=== PATIENT | female | born 2000 | race Caucasian/White ===

== ENCOUNTER → 2018-04-22 10:38 | Outpatient (CLI) | payer OTHER, SELFPAY ==
[2018-04-22 13:28] LABS: Basophils % 0.8 % (0.1-2.0); Eosinophils # 0.1 K/mm3 (0.0-0.4); Eosinophils % 2.6 % (0.1-12.0); Hematocrit 41.5 % (37.0-47.0); Hemoglobin 13.6 g/dL (12.2-16.2); Lymphocytes # 2.5 K/mm3 (0.7-4.5); Mean Corpuscular HGB Conc 32.9 g/dL (31.8-35.4); Mean Corpuscular Hemoglobin 29.1 pg (27.0-31.2); Mean Corpuscular Volume 88.5 fl (81-99); Mean Platelet Volume 7.3 fl (7.4-10.4); Monocytes # 0.3 K/mm3 (0.1-1.0); Neutrophils # 1.6 K/mm3 (1.8-7.8); Neutrophils % 35.6 % (37.0-80.0); Platelet Count 270 K/mm3 (142-424); Red Blood Count 4.68 M/mm3 (4.20-5.40); Red Cell Distribution Width 14.1 % (11.5-17.5); White Blood Count 4.4 K/mm3 (4.5-13.0)
[2018-04-22 13:31] LABS: Free Thyroxine Index 2.2 ug/dL (5.93-13.13); MANUAL DIFFERENTIAL MANUAL DIFFERENTIAL (MANUAL DIFF); T4 (Thyroxine) 7.6 ug/dl (5.4-10.6); Thyroid Stimulating Hormone 1.16 uIU/ml (0.516-4.13); Triiodothryronine (T3) Uptake 29 % (31-39)
[2018-04-22 15:43] LABS: Eosinophils % 3 % (0-3); Lymphocytes % 55 % (10-50); Monocytes % 7 % (2-9); Neutrophils % 35 % (42-76); Total Cells Counted 100
[2018-04-22 15:51] LABS: Platelet Estimate Normal
[2018-04-24 17:13] LABS: FSH 4.8 mIU/mL (.); LH 5.6 mIU/mL (.); Triiodothyronine (T3) Free 3.5 pg/mL (2.0-4.4)
[2018-04-25 12:33] LABS: Neisseria gonorrhoeae, NAA Negative (Negative)
== END ==
PROVIDERS: Visit Provider Nurse Practitioner Obstetrics & Gynecology
DX: N92.6 Irregular menstruation, unspecified (principal); R63.5 Abnormal weight gain; Z72.51 High risk heterosexual behavior
CPT/HCPCS: 36415; 83001; 83002; 84436; 84443; 84479; 84481; 85007; 85025; 87491; 87591

== ENCOUNTER → 2018-04-27 15:35 | Outpatient (CLI) | payer OTHER, SELFPAY ==
--- NOTE | 2018-04-27 15:36 | US_ITS ---
US transvaginal Ordering Physician: Wes Thomas MD Patient Age: 18 years: Female HISTORY: ITS.REASON: US T/V- Abnormal bleeding, r/o ovarian cysts A menorrhea for 5 months. Pelvic pain. Irregular cycles. TECHNIQUE: COMPARISON :None FINDINGS Uterus normal size. 6.9 cm length of 2.5 cm in AP X 3.75 cm wide. Endometrial stripe overall measures 7.5 mm AP on my measurement. Would note that centrally there is a very thin 1.5 mm hyperechoic endometrium stripe centrally surrounded by a more hypoechoic rim accounting for this total 7.5 mm AP endometrial measurement Mild Bilateral ovarian enlargement with polycystic appearance. Very numerous small follicles throughout both ovaries generous color Doppler flow to both ovaries. Right ovary: 4.1 x 2.45 x 1.8 cm..: Right ovary. Largest follicle 9 mm size with mild debris-filled cyst here... To numerous to count other small follicles less than 6 mm size scattered throughout the right ovary. Most numerous about its margin. Left ovary: 4.1 x 2.1 x 2.5 cm.: Largest follicle measuring 8 mm but too numerous to count smaller follicles throughout scattered throughout but most numerous about the margin of left ovary . No fluid in the cul-de-sac ========IMPRESSION: 1. Uterus normal size.. No uterine mass Moderate Endometrial stripe 6.7 mm 2. Ovaries mildly enlarged bilaterally with polycystic appearance. 3. No fluid in cul-de-sac
== END ==
PROVIDERS: PCP Nurse Practitioner Family; Visit Provider Nurse Practitioner Obstetrics & Gynecology
DX: N83.209 Unspecified ovarian cyst, unspecified side (principal); N93.9 Abnormal uterine and vaginal bleeding, unspecified
CPT/HCPCS: 76830

== ENCOUNTER → 2018-05-11 17:29 | Outpatient (CLI) | payer OTHER, SELFPAY ==
[2018-05-11 17:44] LABS: Basophils % 0.5 % (0.1-2.0); Eosinophils # 0.1 K/mm3 (0.0-0.4); Hematocrit 37.7 % (37.0-47.0); Hemoglobin 12.9 g/dL (12.2-16.2); Lymphocytes # 2.3 K/mm3 (0.7-4.5); Mean Corpuscular HGB Conc 34.2 g/dL (31.8-35.4); Mean Corpuscular Hemoglobin 29.2 pg (27.0-31.2); Mean Corpuscular Volume 85.5 fl (81-99); Mean Platelet Volume 7.1 fl (7.4-10.4); Monocytes # 0.2 K/mm3 (0.1-1.0); Monocytes % 4.5 % (1.7-9.3); Neutrophils # 2.5 K/mm3 (1.8-7.8); Platelet Count 247 K/mm3 (142-424); Red Blood Count 4.42 M/mm3 (4.20-5.40); Red Cell Distribution Width 13.8 % (11.5-17.5); White Blood Count 5.2 K/mm3 (4.5-13.0)
[2018-05-11 18:56] LABS: HCG Qualitative, Serum Negative (Negative)
[2018-05-11 21:35] LABS: Blood Urea Nitrogen 11 mg/dL (7-18); Calcium 9.9 mg/dL (8.5-10.1); Carbon Dioxide 26 mmol/L (21.0-32.0); Chloride 101 mmol/L (98-107); Creatinine,Serum 0.73 mg/dL (0.55-1.02); Estimated Glomerular Filt Rate 102 ml/min (>60); GFR (African American) 123 ML/MIN (>60); Glucose 117 mg/dL (74-106); Sodium 137 mmol/L (136-145)
== END ==
PROVIDERS: Visit Provider Nurse Practitioner Obstetrics & Gynecology
DX: Z01.818 Encounter for other preprocedural examination (principal); R10.2 Pelvic and perineal pain; G89.29 Other chronic pain; R10.31 Right lower quadrant pain
CPT/HCPCS: 36415; 80048; 84703; 85025

== ENCOUNTER → 2018-05-28 12:13 | Outpatient (CLI) | payer OTHER, SELFPAY ==
[2018-05-28 15:01] LABS: Free Thyroxine Index 3.2 ug/dL (5.93-13.13); T4 (Thyroxine) 12.2 ug/dl (5.4-10.6); Thyroid Stimulating Hormone 1.46 uIU/ml (0.516-4.13); Triiodothryronine (T3) Uptake 26 % (31-39)
[2018-05-29 10:54] LABS: Triiodothyronine (T3) Free 3.5 pg/mL (2.0-4.4)
== END ==
PROVIDERS: Visit Provider Nurse Practitioner Obstetrics & Gynecology
DX: R53.83 Other fatigue (principal)
CPT/HCPCS: 84436; 84443; 84479; 84481

== ENCOUNTER → 2018-06-02 11:18 | Outpatient (CLI) | payer OTHER, SELFPAY ==
[2018-06-02 11:22] LABS: Adenovirus,PCR Not Detected (NotDetected); Bordetella Pertussis Not Detected (NotDetected); Chlamydophila Pneumoniae, PCR Not Detected (NotDetected); Coronavirus 229E Not Detected (NotDetected); Coronavirus NL63 Not Detected (NotDetected); Coronavirus OC43 Not Detected (NotDetected); Coronovirus HKU1,PCR Not Detected (NotDetected); Human Metapneumovirus Not Detected (NotDetected); Influenza A, PCR Not Detected (NotDetected); Influenza AH1, 2009 Not Detected (NotDetected); Influenza AH1, PCR Not Detected (NotDetected); Influenza AH3,PCR Not Detected (NotDetected); Influenza B, PCR Not Detected (NotDetected); Mycoplasma Pneumoniae, PCR Not Detected (NotDetected); Parainfluenza 1, PCR Not Detected (NotDetected); Parainfluenza 2, PCR Not Detected (NotDetected); Parainfluenza 3, PCR Not Detected (NotDetected); Parainfluenza 4, PCR Not Detected (NotDetected); Respiratory Syncytial Virus Not Detected (NotDetected); Rhinovirus/Enterovirus Not Detected (NotDetected)
== END ==
PROVIDERS: PCP Nurse Practitioner Family; Visit Provider Nurse Practitioner Family
DX: R05 Cough (principal)
CPT/HCPCS: 87486; 87581; 87633; 87798

== ENCOUNTER → 2019-01-05 18:26 | Outpatient (CLI) | payer OTHER, SELFPAY ==
[2019-01-05 19:40] LABS: Basophils % 0.5 % (0.1-2.0); Eosinophils # 0.2 K/mm3 (0.0-0.4); Eosinophils % 3.4 % (0.1-12.0); Hematocrit 42.9 % (37.0-47.0); Hemoglobin 13.6 g/dL (12.2-16.2); Lymphocytes # 2.5 K/mm3 (0.7-4.5); Lymphocytes % 51.1 % (10-50); Mean Corpuscular HGB Conc 31.8 g/dL (31.8-35.4); Mean Corpuscular Hemoglobin 29.5 pg (27.0-31.2); Mean Corpuscular Volume 92.7 fl (81-99); Mean Platelet Volume 8.5 fl (7.4-10.4); Monocytes # 0.3 K/mm3 (0.1-1.0); Monocytes % 6.9 % (1.7-9.3); Neutrophils # 1.9 K/mm3 (1.8-7.8); Neutrophils % 38.2 % (37.0-80.0); Platelet Count 333 K/mm3 (142-424); Red Blood Count 4.62 M/mm3 (4.20-5.40); Red Cell Distribution Width 13.3 % (11.5-17.5); White Blood Count 4.9 K/mm3 (4.8-10.8)
[2019-01-05 19:41] LABS: MANUAL DIFFERENTIAL MANUAL DIFFERENTIAL (MANUAL DIFF)
[2019-01-05 20:49] LABS: Alanine Aminotransferase 30 U/L (12-78); Albumin Level 4.1 gm/dL (3.4-5.0); Alkaline Phosphatase 76 U/L (46-116); Anion Gap 15.2 mEq/L (5-15); Aspartate Amino Transferase 22 U/L (15-37); Bilirubin,Total 0.4 mg/dL (0.2-1.0); Blood Urea Nitrogen 11 mg/dL (7-18); Calcium 9.3 mg/dL (8.5-10.1); Carbon Dioxide 25 mmol/L (21.0-32.0); Chloride 102 mmol/L (98-107); Chol/HDL Ratio 3.3 (1-3.5); Cholesterol 180 mg/dL (140-200); Creatinine,Serum 0.72 mg/dL (0.55-1.02); Estimated Glomerular Filt Rate 102 ml/min (>60); GFR (African American) 124 ML/MIN (>60); Glucose 66 mg/dL (74-106); HDL Cholesterol 54 mg/dL (29-89); LDL Cholesterol 83 mg/dL (0-130); Potassium 4.2 mmoL/L (3.5-5.1); Sodium 138 mmol/L (136-145); Thyroid Stimulating Hormone 0.92 uIU/ml (0.358-3.740); Total Protein,Serum 8.1 gm/dL (6.4-8.2); Triglycerides 215 mg/dL (30-200); VLDL Cholesterol 43 mg/dL (0-40)
[2019-01-05 23:13] LABS: Anisocytosis 1+; Eosinophils % 3 % (0-3); Lymphocytes % 43 % (10-50); Monocytes % 1 % (2-9); Neutrophils % 52 % (42-76); Platelet Estimate Normal; Total Cells Counted 100
[2019-01-07 23:10] LABS: Vitamin D 25 Hydroxy 29.9 ng/mL (30.0-100.0)
== END ==
PROVIDERS: Visit Provider Nurse Practitioner Family
DX: R53.83 Other fatigue (principal)
CPT/HCPCS: 80053; 80061; 82652; 84436; 84443; 85007; 85025

== ENCOUNTER → 2019-02-04 09:36 | Outpatient (CLI) | payer OTHER, SELFPAY ==
--- NOTE | 2019-02-04 09:52 | CT_ITS ---
PROCEDURE: CT ABDOMEN PELVIS WO CON CLINICAL INDICATION: pain Generalized abdominal pain mostly on the left COMPARISON: No exams were available for comparison TECHNIQUE: Axial images obtained with sagittal and coronal reformats. All CT scans at the facility use one or more dose reduction, viz: automated exposure control, ma/kV adjustment per patient size (including targeted exams where dose is matched to indication, i.e. head), or iterative reconstruction technique. FINDINGS: LOWER THORAX: No acute finding ABDOMEN & PELVIS: The liver, spleen, pancreas, adrenal glands, and kidneys show no acute finding. No intestinal obstruction or free air. No evidence of appendicitis or diverticulitis. No pelvic mass, abnormal fluid collection, or focal inflammatory change of the pelvis. No acute bony anomalies. There are scattered small mesenteric lymph nodes centrally and in the right lower quadrant which are nonspecific. There has been a prior appendectomy. There is a moderate amount of retained colonic feces IMPRESSION: 1. No acute abdominal or pelvic findings. 2. Mild amount of retained colonic feces Dictated by: Richard Prasad MD 02/04/2019 15:54 Electronically signed by Richard Prasad MD in [facility] 02/04/2019 15:54
== END ==
PROVIDERS: PCP Nurse Practitioner Family; Visit Provider Nurse Practitioner Family
DX: R10.9 Unspecified abdominal pain (principal)
CPT/HCPCS: 74176

== ENCOUNTER → 2020-09-11 08:33 | Outpatient (CLI) | payer OTHER, SELFPAY | PROVIDERS: PCP Family Medicine; Visit Provider Nurse Practitioner Family | DX: R06.00 Dyspnea, unspecified (principal); R07.9 Chest pain, unspecified; R94.31 Abnormal electrocardiogram [ECG] [EKG] | CPT/HCPCS: 93306 ==

== ENCOUNTER → 2020-09-18 14:42 | Outpatient (CLI) | payer OTHER, SELFPAY ==
--- NOTE | 2020-09-18 15:03 | XR_ITS ---
PROCEDURE: XR CHEST 2V CLINICAL HISTORY: dyspnea COMPARISON: No exams were available for comparison FINDINGS: The cardiomediastinal silhouette and pulmonary vascularity are within normal limits. The lungs are clear without infiltrates, suspicious nodules, or pleural effusions. No acute bony abnormalities. IMPRESSION: No acute cardiopulmonary disease. Dictated by: Venkat Jackson 09/18/2020 16:12 Venkat Jackson in [facility] 09/18/2020 16:12
[2020-09-18 15:24] LABS: Basophils % 0.4 % (0.1-2.0); Eosinophils # 0.1 K/mm3 (0.0-0.4); Eosinophils % 0.5 % (0.1-12.0); Hematocrit 40.1 % (37.0-47.0); Hemoglobin 14.1 g/dL (12.2-16.2); Lymphocytes # 2.9 K/mm3 (0.7-4.5); Lymphocytes % 22.6 % (10-50); Mean Corpuscular HGB Conc 35.1 g/dL (31.8-35.4); Mean Corpuscular Hemoglobin 31.4 pg (27.0-31.2); Mean Corpuscular Volume 89.5 fl (81-99); Mean Platelet Volume 7.9 fl (7.4-10.4); Monocytes # 0.6 K/mm3 (0.1-1.0); Monocytes % 4.7 % (1.7-9.3); Neutrophils # 9.1 K/mm3 (1.8-7.8); Neutrophils % 71.8 % (37.0-80.0); Platelet Count 268 K/mm3 (142-424); Red Blood Count 4.48 M/mm3 (4.20-5.40); Red Cell Distribution Width 12.6 % (11.5-17.5); White Blood Count 12.7 K/mm3 (4.8-10.8)
[2020-09-18 16:01] LABS: Chloride 102 mmol/L (98-107)
[2020-09-18 16:02] LABS: Potassium 4.2 mmoL/L (3.5-5.1); Sodium 139 mmol/L (136-145)
[2020-09-18 16:04] LABS: Alanine Aminotransferase 106 U/L (12-78); Anion Gap 16.2 mEq/L (5-15); Aspartate Amino Transferase 61 U/L (14-36); Bilirubin,Unconjugated 0.3 mg/dL (0.0-1.1); Blood Urea Nitrogen 15 mg/dl (7-17); Carbon Dioxide 25 mmol/L (22.0-30.0); Estimated Glomerular Filt Rate 125 ml/min (>60); GFR (African American) 151 ML/MIN (>60)
[2020-09-18 16:05] LABS: Albumin Level 5.1 g/dl (3.5-5.0); Alkaline Phosphatase 107 U/L (38-126); Bilirubin,Direct 0.4 mg/dl (0.0-0.4); Bilirubin,Indirect 0.2 mg/dL (0.0-0.9); Bilirubin,Total 0.6 mg/dl (0.2-1.3); Calcium 9.6 mg/dl (8.4-10.2); Chol/HDL Ratio 2.9 (1-3.5); Cholesterol 201 mg/dl (140-200); Glucose 97 mg/dl (74-100); HDL Cholesterol 70 mg/dl (40-60); Total Protein,Serum 8.3 g/dl (6.3-8.2); Triglycerides 105 mg/dl (30-150); VLDL Cholesterol 21 mg/dL (0-40)
[2020-09-18 16:16] LABS: Direct LDL Cholesterol 112.23 mg/dL (100-129)
[2020-09-18 16:23] LABS: Free T4 (Free Thyroxine) 0.71 ng/dl (0.78-2.19)
[2020-09-18 16:36] LABS: Thyroid Stimulating Hormone 0.53 uIU/mL (0.465-4.68)
== END ==
PROVIDERS: Visit Provider Physician Assistant
DX: R06.00 Dyspnea, unspecified (principal); R07.9 Chest pain, unspecified; I45.10 Unspecified right bundle-branch block; R94.31 Abnormal electrocardiogram [ECG] [EKG]; G47.9 Sleep disorder, unspecified; R06.83 Snoring; Z82.49 Family history of ischemic heart disease and other diseases of the circulatory system
CPT/HCPCS: 36415; 71046; 80048; 80061; 80076; 84439; 84443; 85025

== ENCOUNTER → 2020-10-11 06:11 | Outpatient (CLI) | payer OTHER, SELFPAY ==
--- NOTE | 2020-10-11 06:12 | CT_ITS ---
PROCEDURE: CT ANGIO CORONARY ARTERY CLINCAL INDICATION: chest pain Heart flutter tachycardia COMPARISON: No exams were available for comparison TECHNIQUE: IV Contrast: 200 mL Axial images obtained with sagittal and coronal reformats. All CT scans at the facility use one or more dose reduction, viz: automated exposure control, ma/kV adjustment per patient size (including targeted exams where dose is matched to indication, i.e. head), or iterative reconstruction technique. FINDINGS: The patient was unable to properly breath hold despite repeating the exam and reaching contrast limits of 200 mL. The coronary arteries are not at adequately assessed. The heart rate varied from the mid 60s to the upper 70s despite 50 mg of p.o. metoprolol and 15 mg of IV metoprolol. 1 mg of Ativan was given IV in hopes of relaxing the patient.. The images are therefore not adequate for coronary artery evaluation. The left coronary artery has a normal origin. The right coronary artery origin was not able to be demonstrated despite repeating the exam secondary to patient's inability to breath hold. The patient was basically breathing throughout the breath hold portion of the study. IMPRESSION: Nondiagnostic exam Dictated by: Richard Prasad MD 10/12/2020 09:49 Richard Prasad MD in [facility] 10/12/2020 09:49
[2020-10-11 06:31] VITALS: BMI 34.3
[2020-10-11 06:48] VITALS: BP 122/81; PULSE 75; RESP 18; TEMP 36.7; O2SAT 100
== END ==
PROVIDERS: PCP Family Medicine; Visit Provider Physician Assistant
DX: R07.9 Chest pain, unspecified (principal)
CPT/HCPCS: 75574; Q9967

== ENCOUNTER → 2020-11-08 07:03 | Outpatient (CLI) | payer OTHER, SELFPAY ==
--- NOTE | 2020-11-08 07:52 | US_ITS ---
PROCEDURE: US ABDOMEN LIMITED CLINICAL INDICATION: ABN RESULTS OF LIVER FUNCTION STUDIES COMPARISON: CT CT ABDOMEN PELVIS WO CON from 02/04/2019 FINDINGS: PANCREAS: Unremarkable. No obvious mass or abnormal fluid collection. No ductal dilatation LIVER: Diffuse increased echogenicity of the liver with poor through transmission of sound consistent with hepatic steatosis. There are 2 areas of decreased echogenicity in the left hepatic lobe measuring 1.5 and 0.7 cm. These are nonspecific and do not appear cystic. Possibly related to hemangiomas. MRI with hemangioma protocol suggested for confirmation.. There is appropriate direction of blood flow within non dilated portal vein. RIGHT KIDNEY: Unremarkable. Normal size and echogenicity. No hydronephrosis GALLBLADDER: No gallstones, gallbladder wall thickening, pericholecystic fluid, or biliary dilatation. Common bile duct is 4 mm. IMPRESSION: 1. At least 2 hypoechoic lesions of the left lobe of the liver which do not appear cystic. Possibly related to hemangiomas. Suggest MRI with hemangioma protocol. 2. No gallstones apparent. Dictated by: Richard Prasad MD 11/08/2020 13:21 Richard Prasad MD in [facility] 11/08/2020 13:21
[2020-11-08 08:18] LABS: Basophils # 0.1 K/mm3 (0-0.2); Basophils % 1.5 % (0.1-2.0); Eosinophils # 0.1 K/mm3 (0.0-0.4); Eosinophils % 3.3 % (0.1-12.0); Hematocrit 38.8 % (37.0-47.0); Hemoglobin 13.6 g/dL (12.2-16.2); Lymphocytes % 48.5 % (10-50); Mean Corpuscular Hemoglobin 31.1 pg (27.0-31.2); Mean Corpuscular Volume 88.7 fl (81-99); Mean Platelet Volume 8.1 fl (7.4-10.4); Monocytes # 0.3 K/mm3 (0.1-1.0); Monocytes % 7.1 % (1.7-9.3); Neutrophils # 1.7 K/mm3 (1.8-7.8); Neutrophils % 39.6 % (37.0-80.0); Platelet Count 198 K/mm3 (142-424); Red Blood Count 4.37 M/mm3 (4.20-5.40); Red Cell Distribution Width 13.1 % (11.5-17.5); White Blood Count 4.2 K/mm3 (4.8-10.8)
[2020-11-08 08:41] LABS: Alanine Aminotransferase 88 U/L (12-78); Albumin Level 4.7 g/dl (3.5-5.0); Alkaline Phosphatase 107 U/L (38-126); Aspartate Amino Transferase 85 U/L (14-36); Bilirubin,Total 0.5 mg/dl (0.2-1.3); Blood Urea Nitrogen 13 mg/dl (7-17); Calcium 9.4 mg/dl (8.4-10.2); Carbon Dioxide 24 mmol/L (22.0-30.0); Chloride 105 mmol/L (98-107); Estimated Glomerular Filt Rate 125 ml/min (>60); GFR (African American) 151 ML/MIN (>60); Glucose 102 mg/dl (74-100); Iron 97 ug/dL (37-170); Potassium 4.2 mmoL/L (3.5-5.1); Prothrombin Time 10.9 seconds (10.1-12.5); Sodium 141 mmol/L (136-145); Total Protein,Serum 7.5 g/dl (6.3-8.2)
[2020-11-08 08:48] LABS: Total Iron Binding Capacity 444 ug/dL (265-497)
[2020-11-08 08:52] LABS: INR 0.92 (0.9-1.1)
[2020-11-08 09:14] LABS: Ferritin 47.3 ng/ml (6.24-137)
[2020-11-08 09:51] LABS: Anion Gap 16.2 mEq/L (5-15)
--- NOTE | 2020-11-08 11:14 | CA_ITS ---
APPROVED REPORT Exam: Exercise Treadmill Technologist: Jimena Carroll, Ht: 5 ft 3 in Wt: 199 lbs BSA: 1.93 m2 HR: 70 bpm BP: 122/66 mmHg Medical History Medications: Omeprazole,,,,, Lexapro,,,,, Aripiprazole,,,,, Propranolol ER,,,,, ONdansetron HCI,,,,, Pork Thyroid,,,,, Stress Test Details Test: Ruddy HR Resting HR: 69 bpm Max Heart Rate (APMHR): 198 bpm Max HR Achieved: 119 bpm Target HR (85% APMHR): 168 bpm % of APMHR: 60 Recovery HR: 91 bpm BP Resting BP: 126/70 mmHg Max BP: 153/67 mmHg Recovery BP: 128.0/68.0 mmHg ECG Resting ECG: NSR, incomplete RBBB, NS T wave abn in lead V3 Clinical Exercise duration: 06:58 min Highest Stage Achieved: Exercise capacity: 10.1 METs Stress ECG Conclusion Exercised 6:58 on Ruddy Protocol, stopped due to SOA. Max HR: 119 % of PM: 60% Max BP: 153/67 METs: 10.1 Symptoms: SOA and chest pressure Arrhythmias/Ectopy: None ST-T Changes: within normal ST response to exercise. Conclusion: The EKG portion of the exercise stress test is nondiagnostic as patient did not achieve the target heart rate. Blunted HR response on Propranolol. GXT only (no imaging). Electronically signed by : Angel Luis Guerrero MD 11/09/2020 14:55:24
[2020-11-08 13:07] LABS: Albumin/Globulin Ratio 1.7 (1.1-1.8); Globulin 2.8 g/dL (1.3-3.2)
[2020-11-09 10:37] LABS: Hep A Ab, IgM Negative (Negative); Hepatitis B Core Antibody IgM Negative (Negative); Hepatitis B Surface Antigen Negative (Negative); Hepatitis C Antibody <0.1 s/co ratio (0.0-0.9)
[2020-11-09 13:17] LABS: Ceruloplasmin 24.7 mg/dL (19.0-39.0); Immunoglobulin A, Qn 203 mg/dL (87-352); Immunoglobulin G, Qn 1074 mg/dL (586-1602); Immunoglobulin M, Qn 142 mg/dL (26-217)
[2020-11-09 14:46] LABS: Actin (Smooth Muscle) Antibody 12 Units (0-19); Angiotensin Converting Enzyme 41 U/L (14-82); Endomysial IgA Antibody Negative (Negative); Mitochondrial (M2) Antibody 22.9 Units (0.0-20.0)
[2020-11-09 17:42] LABS: Deamidated Gliadin Abs, IgA 6 units (0-19); Deamidated Gliadin Abs, IgG 4 units (0-19); Tissue Transglutaminase IgA Ab <2 U/mL (0-3); Tissue Transglutaminase IgG Ab 3 U/mL (0-5)
[2020-11-10 06:19] LABS: ALT (SGPT) P5P 93 IU/L (0-40); AST (SGOT) P5P 78 IU/L (0-40); Alpha 2-Macroglobulins, Qn 250 mg/dL (110-276); Apolipoprotein A-1 134 mg/dL (116-209); Bilirubin, Total 0.4 mg/dL (0.0-1.2); Cholesterol, Total 169 mg/dL (100-199); Fibrosis Score 0.15 (0.00-0.21); GGT 41 IU/L (0-60); Glucose 99 mg/dL (65-99); Haptoglobin 118 mg/dL (33-278); Steatosis Score 0.61 (0.00-0.30); Triglycerides 134 mg/dL (0-149)
[2020-11-10 09:15] LABS: Reticulin IgA Antibody Negative titer (Neg:<1:2.5)
[2020-11-13 16:26] LABS: Alpha-1-Antitrypsin 104 mg/dL (100-188)
[2020-12-05 10:16] LABS: Antinuclear Antibodies (ANA) NEGATIVE
== END ==
PROVIDERS: PCP Family Medicine; Visit Provider Nurse Practitioner Family
DX: R06.00 Dyspnea, unspecified (principal); R10.11 Right upper quadrant pain; R94.5 Abnormal results of liver function studies; R07.89 Other chest pain; I45.10 Unspecified right bundle-branch block; R00.2 Palpitations; R94.31 Abnormal electrocardiogram [ECG] [EKG]; Z82.49 Family history of ischemic heart disease and other diseases of the circulatory system
CPT/HCPCS: 36415; 76705; 80053; 80074; 81256; 82103; 82104; 82164; 82390; 82728; 82784; 83516; 83540; 83550; 85025; 85610; 86038; 86255; 86256; 86376; 93017

== ENCOUNTER → 2020-11-18 21:23 | Outpatient (CLI) | payer OTHER, SELFPAY | PROVIDERS: PCP Family Medicine; Visit Provider Urology | DX: G47.9 Sleep disorder, unspecified (principal); R06.00 Dyspnea, unspecified; R40.0 Somnolence; R06.83 Snoring | CPT/HCPCS: 95806 ==